=== PATIENT | male | born 1995 | race Caucasian/White ===

== ENCOUNTER 2017-01-28 12:27 | Emergency (ER) | payer BC ==
[2017-01-28 12:32] VITALS: TEMP 98.4
--- NOTE | 2017-01-28 13:14 | EDPHY ---
H & P Time Seen by Provider: 01/28/17 12:48 HPI/ROS: CHIEF COMPLAINT: Lizard bite to right hand HPI: The patient is a 22-year-old male with no significant past medical history. 2 days ago, he was bitten to the right hand by his pet Ashish armando Harts. Since that time he has noted increasing swelling, redness and now lymphatic streaking into his right forearm. He denies fever, myalgias or chills. He has not taken antibiotics this point. REVIEW OF SYSTEMS: Aside from elements discussed in the HPI, a comprehensive 10-point review of systems was reviewed and is negative. PMH: None significant. SOCIAL HISTORY: Denies alcohol or drug abuse. PHYSICAL EXAM: General:Patient is alert, in no acute distress. Head: Normocephalic, atraumatic. ENT:Eyes are normal to inspection. ENT inspection normal. Neck: Normal inspection. Full range of motion. Respiratory:No respiratory distress. Breath sounds normal bilaterally. Cardiovascular: Regular rate and rhythm. Strong peripheral pulses. Normal cap refill. Abdomen:The abdomen is nontender to palpation. There are no peritoneal signs. There are normal bowel sounds. Back: Normal to inspection. No tenderness to palpation. Extremities: Tenderness, swelling and erythema are present surrounding a bite wound to the medial right hand. Lymphatic streaking is present to the level of the distal forearm. Neuro: Oriented x3. Normal motor function. Normal sensory function. Smoking Status: Never smoked Constitutional: Initial Vital Signs Temperature (C) 36.9 C 01/28/17 12:28 Heart Rate 88 01/28/17 12:28 Respiratory Rate 16 01/28/17 12:28 Blood Pressure 144/77 H 01/28/17 12:28 O2 Sat (%) 98 01/28/17 12:28 O2 Delivery Mode Room Air Allergies/Adverse Reactions: Penicillins Allergy (Unknown, Verified 01/28/17 12:32) as child Home Medications: Medication Instructions Recorded Ciprofloxacin [Cipro] 500 mg PO BID #14 tab 01/28/17 MDM/Departure - MDM Medications Given: Discontinued Medications Ciprofloxacin (Cipro) 500 mg PO EDNOW ONE PRN Reason: Protocol Stop: 01/28/17 13:52 Last Admin: 01/28/17 14:03 Dose: 500 mg Sodium Chloride (Ns) 1,000 mls @ 0 mls/hr IV ONCE ONE PRN Reason: Wide Open Stop: 01/28/17 13:16 Last Admin: 01/28/17 13:15 Dose: 1,000 mls ED Course/Re-evaluation: I consulted Dr. Marin from [place]. She recommends treatment with a fluoroquinolone. This patient presents with mild cellulitis with some lymphatic streaking secondary to rectal bite. Per Infectious Disease recommendations, we will place the patient on a fluoroquinolone. I did offer him an IV dose of ceftriaxone, but he has refused given history of penicillin allergy. I see no evidence of systemic infection or sepsis. I discussed strict return precautions with the patient. There is no evidence of foreign body. Patient's tetanus shot is up-to-date. - Depart Disposition: Home, Routine, Self-Care Clinical Impression: Reptile bite, Cellulitis Condition: Good Instructions: Cellulitis (ED) Additional Instructions: Return to the ED within the next 36 hours for a re-check. Start antibiotics tonight. Return to the ED immediately for fever, worsening redness or pain, or other concerns. Prescriptions: Ciprofloxacin [Cipro] 500 mg PO BID #14 tab Referrals: NONE *PRIMARY CARE P,. [Primary Care Provider] - As per Instructions
[2017-01-28] MEDS ORDERED: NS 1,000 ML IV ONE (13:15)
[2017-01-28] MEDS ORDERED: CIPROFLOXACIN 500 MG TAB PO ONE (13:51)
[2017-01-28 14:05] VITALS: BP 143/76; PULSE 80; RESP 18; O2SAT 97
== END 2017-01-28 14:09 | disposition home or self-care (01) ==
DX: T63 Toxic effect of contact with venomous animals and plants (principal); L03.114 Cellulitis of left upper limb